=== PATIENT | female | born 1980 | race Caucasian/White ===

== ENCOUNTER 2018-01-07 15:11 | Emergency (ER) | payer SELFPAY ==
--- NOTE | 2018-01-07 16:15 | RAD ---
THREE VIEWS LEFT WRIST: 01/07/18 HISTORY: Left wrist injury. FINDINGS: There is no evidence of a fracture, dislocation, or other osseous abnormality involving the left wris t. IMPRESSION: No acute osseous abnormality. POS: [facility]
== END 2018-01-07 16:00 | disposition home or self-care (01) ==
LOC: MADERS 15:11
DX: S63.502A Unspecified sprain of left wrist, initial encounter (principal); F17.210 Nicotine dependence, cigarettes, uncomplicated; X58.XXXA Exposure to other specified factors, initial encounter